=== PATIENT | male | born 1965 | race Caucasian/White ===

== ENCOUNTER 2020-02-13 16:03 | Outpatient (REF) | payer OTHER, BC, SELFPAY ==
--- NOTE | 2020-02-13 16:16 | XR_ITS ---
EXAMINATION: XR HAND, RIGHT CLINICAL INFORMATION: Laceration middle digit. Concern for foreign body. COMPARISON: None TECHNIQUE: PA, lateral, and oblique views of the right hand. FINDINGS: There is no radiopaque foreign body. There is no air in the soft tissue. The bone and joints are normal. IMPRESSION: Normal right hand. No radiopaque foreign body.
== END 2020-02-13 16:04 | disposition home or self-care (01) ==
LOC: HO.HMGCX 16:03
PROVIDERS: PCP Internal Medicine; Visit Provider Nurse Practitioner Family
DX: S61.212A Laceration without foreign body of right middle finger without damage to nail, initial encounter (principal); X58.XXXA Exposure to other specified factors, initial encounter; Y93.9 Activity, unspecified; Y92.9 Unspecified place or not applicable; Y99.8 Other external cause status
CPT/HCPCS: 73130

== ENCOUNTER 2020-05-30 14:04 | Outpatient (REF) | payer BC, SELFPAY | END 2020-05-30 14:05 | disposition home or self-care (01) | LOC: HO.HMGCLDS 14:04 | PROVIDERS: PCP Internal Medicine; Visit Provider Internal Medicine | DX: Z13.89 Encounter for screening for other disorder (principal) ==

== ENCOUNTER 2020-05-30 14:27 | Outpatient (REF) | payer BC, SELFPAY ==
[2020-05-30 15:33] LABS: MANUAL DIFF FLAG NO
[2020-05-30 15:35] LABS: Basophils Percent Auto 0.5 % (0-2); Eosinophils Absolute Auto 0.2 X10*3/uL (0.0-0.4); Eosinophils Percent Auto 2.7 % (0-4); Hematocrit 44.9 % (42-52); Hemoglobin 14.9 g/dl (14.0-18.0); Imm Gran Abs Auto 0.01 X10*3/uL (0.00-0.03); Imm Gran Pct Auto 0.1 % (0.0-0.4); Lymphocytes Absolute Auto 1.8 X10*3/uL (1.2-4.9); Mean Corpuscular HGB Conc 33.2 g/dl (31.0-36.0); Mean Corpuscular Volume 90.3 fL (80-98); Mean Platelet Volume 10.8 fL (9.4-12.4); Monocytes Absolute Auto 0.6 X10*3/uL (0.1-1.2); Monocytes Percent Auto 8.2 % (2-11); Neutrophils Percent Auto 65.5 % (45-73); Platelet Count 254 X10*3/uL (160-400); Red Blood Count 4.97 X10*6/uL (4.60-5.80); Red Cell Distribution Width 12.8 % (11.0-16.0); White Blood Count 7.7 X10*3/uL (4.8-10.8)
[2020-05-30 15:36] LABS: Lactic Acid 1.6 mmol/L (0.5-2.0)
[2020-05-30 15:39] LABS: Glucose Urine UA NEG (NEG); Leukocyte Esterase Urine NEG (NEG); Nitrite Urine NEG (NEG); Specific Gravity - Urine >= 1.030 (1.005-1.025); Urine Blood NEG (NEG); Urine Ketones NEG (NEG); Urine Protein NEG (NEG-TRACE)
[2020-05-30 15:43] LABS: Appearance Urine HAZY; Color Urine YELLOW
[2020-05-30 16:06] LABS: Alanine Aminotransferase 24 U/L (0-40); Albumin Level 4.6 g/dL (3.5-5.0); Alkaline Phosphatase 76 U/L (39-117); Anion Gap 12 (12-20); Aspartate Amino Transferase 24 U/L (5-37); Bilirubin Total 0.5 mg/dL (0.0-1.0); Blood Urea Nitrogen 18 mg/dL (9-16); Calcium 9.4 mg/dL (8.4-10.2); Carbon Dioxide 29 mmol/L (22-29); Chloride 106 mmol/L (96-108); Estimated Glomerular Filt Rate > 60; Glucose Random 74 mg/dL (60-115); Lipase 19 U/L (8-78); Potassium 5.1 mmol/l (3.3-5.1); Sodium 142 mmol/L (135-145); Total Protein 7.4 g/dL (6.5-8.0)
[2020-05-30 16:28] LABS: Prostate Specific Antigen 1.09 ng/mL (<0.05-4.0)
== END 2020-05-30 14:28 | disposition home or self-care (01) ==
LOC: HO.LAB 14:27
PROVIDERS: PCP Internal Medicine; Visit Provider Internal Medicine
DX: R10.31 Right lower quadrant pain (principal); R39.198 Other difficulties with micturition
CPT/HCPCS: 36415; 80053; 81003; 83605; 83690; 84153; 85025; 86140

== ENCOUNTER 2020-06-07 07:56 | Outpatient (REF) | payer BC, SELFPAY ==
--- NOTE | ~2020-06-07 | CT_ITS ---
EXAMINATION: CT ABDOMEN AND PELVIS WITH CONTRAST CLINICAL INFORMATION: Right lower quadrant pain. COMPARISON: Renal ultrasound 08/04/[address] abdomen 07/02/2015 TECHNIQUE: Multidetector volumetric images were obtained from the superior aspect of the liver through the pubic symphysis following administration 85 mL of Omnipaque 350 intravenous contrast. Sagittal and coronal reformatted images were obtained on the technologist's workstation. Oral contrast: No This CT examination was performed using dose optimization techniques as appropriate, variously including the following: *Automated exposure control *Adjustment of mA and/or kV according to patient size (this includes techniques or standardized protocols for targeted exams where dose is matched to indication/reason for exam; i.e. extremities or head) *Use of iterative reconstruction technique DLP: 568 mGy-cm FINDINGS: LUNG BASES: The lung bases are clear. The heart size is normal. LIVER, GALLBLADDER, AND BILIARY TREE: The liver is normal in size, shape, and attenuation. No focal hepatic lesion or biliary ductal dilatation is present. The gallbladder is unremarkable with no evidence of radiopaque gallstones, gallbladder wall thickening, or obvious pericholecystic inflammatory changes. PANCREAS: Unremarkable. SPLEEN: Unremarkable. ADRENAL GLANDS: Unremarkable. KIDNEYS AND URETERS: The kidneys are normal in size, shape, and attenuation. No hydronephrosis, hydroureter, or calculi seen. No perinephric stranding. There is a moderate size mid pole cyst measuring 5.2 x 3.4 cm. There is 7 mm cyst mid to lower pole right kidney. BLADDER: Unremarkable. GASTROINTESTINAL TRACT: Scattered stool, diverticuli and gas seen throughout the colon without distention or diverticulitis. Oral contrast opacified small bowel loops are normal caliber. Appendix is not visualized with certainty. ABDOMINAL WALL: Small umbilical hernia containing fat is noted.. LYMPH NODES: Normal. VASCULAR: Unremarkable. PELVIC VISCERA: The prostate gland is mildly enlarged. No free fluid or free air seen. OSSEOUS STRUCTURES: Mild degenerative disc changes with ventral spondylosis L2-L3 and L1 S2 disc levels is noted. No lytic or sclerotic process seen. CT/CT abdomen pelvis w con IMPRESSION: Mild constipation with scattered colonic diverticulosis but no diverticulitis. Bilateral renal cysts.
[2020-06-07] MEDS: iohexoL 350 MG/ML 100 ML INFUS..BTL 85 ML IV (11:12)
[2020-06-07] MEDS: Barium Sulfate Oral (Vanilla) 450 ML ORAL.SUSP 900 ML PO (11:12)
== END 2020-06-07 07:57 | disposition home or self-care (01) ==
LOC: HO.CT 07:56
PROVIDERS: PCP Internal Medicine; Visit Provider Internal Medicine
DX: R10.31 Right lower quadrant pain (principal)
CPT/HCPCS: 74177; Q9967

== ENCOUNTER → 2020-07-10 11:27 | Outpatient (BNVA) | payer BC, SELFPAY | PROVIDERS: PCP Internal Medicine; Visit Provider Surgery ==

== ENCOUNTER 2020-07-24 08:57 | Outpatient (REF) | payer BC, SELFPAY ==
--- NOTE | ~2020-07-24 | US_ITS ---
EXAMINATION: US ABDOMEN COMPLETE CLINICAL INFORMATION: Unspecified abdominal pain. COMPARISON: CT abdomen and pelvis 06/07/2020. Renal ultrasound 08/04/2016. TECHNIQUE: Real-time imaging of the abdominal viscera. FINDINGS: PANCREAS: Not well visualized ABDOMINAL AORTA: The mid and distal segments are normal in caliber. INFERIOR VENA CAVA: Visualized portions are normal. LIVER: The liver is normal in size. The liver contour is normal. Liver echotexture may be slightly increased. No focal hepatic lesion. There is no intrahepatic biliary duct dilatation seen. GALLBLADDER: Normal. The gallbladder is physiologically distended without evidence of stones, sludge, polyps, wall thickening or pericholecystic fluid. COMMON BILE DUCT: Normal in caliber measuring 0.2 cm in diameter. RIGHT KIDNEY: There is an 8 x 8 x 10 mm cyst in the lower pole. No hydronephrosis or renal calculi. The kidney measures 12.6 cm in maximum dimension. LEFT KIDNEY: There is a 4.4 x 3.2 x 4 cm cyst in the midpole and a 1.5 x 1.7 x 2.3 cm cyst in the midpole. No hydronephrosis or renal calculi. The kidney measures 12.7 cm in maximum dimension. SPLEEN: Normal. The spleen measures 10.6 cm in maximum dimension. FREE FLUID: None. US/US abdomen complete IMPRESSION: Limited visualization of the pancreas and upper abdominal aorta. Slightly echogenic liver questionable for fatty infiltration. Bilateral renal cysts.
== END 2020-07-24 08:58 | disposition home or self-care (01) ==
LOC: HO.HMGCX 08:57
PROVIDERS: Visit Provider Surgery
DX: R10.9 Unspecified abdominal pain (principal)
CPT/HCPCS: 76700

== ENCOUNTER 2023-11-23 11:47 | Outpatient (AMB) | payer BC, SELFPAY ==
[2023-11-23 11:51] VITALS: BP 150/80; PULSE 67; TEMP 36.6; O2SAT 97; BMI 29.8
--- NOTE | 2023-11-23 11:51 | AM.OFFWIN_ITS ---
Intake Vital Signs 11/23/23 11:51 Height 6 ft Weight 220 lb BMI 29.8 BP 150/80 H Blood Pressure Location Rt brachial Position Sitting Pulse 67 Pulse Source Pulse Oximeter Temp 97.9 F Temp Source Temporal Artery Scan Pulse Oximetry (%) 97 Oxygen Delivery Method Room Air Intake Visit Reasons: EP Rash arm/stomach Intake Note: pt is here for rash on arm and stomach Patient Tobacco Use Status: Never used Tobacco Allergies No Known Allergies Allergy (Verified 11/23/23 11:54) Do you need a note to return to daycare/school/sports/work: No HPI HPI Comments History of Present Illness Details Patient is a 58-year-old male complaining of an itchy rash on his right forearm that started 4 days ago. He said he now also has it on his right lower abdomen. He states it is itchy, he denies any fevers. He states at work last he might have come in contact with poison chang when he was moving something. [facility] Medical History (Updated 11/23/23 @ 12:05 by Socorro Ventura PA-C) Neuropathy Right sided abdominal pain Surgical History History of surgical amputation of finger History of left knee surgery History of vasectomy Family History Mother Breast cancer Sister Breast cancer Social History Alcohol intake: never Patient Tobacco Use Status: Never used Tobacco Review of Systems Const All systems reviewed & are unremarkable except as noted in HPI and below Physical Exam Vital Signs: Last Vital Signs Temp 97.9 F 11/23/23 11:51 Pulse 67 11/23/23 11:51 BP 150/80 H 11/23/23 11:51 Pulse Ox 97 11/23/23 11:51 Oxygen Delivery Method Room Air 11/23/23 11:51 BMI result Body Mass Index 29.8 Const General: cooperative, healthy appearing, comfortable and no acute distress Orientation/consciousness: patient oriented x3 Limitations: no limitations HEENT Head: Yes normal to inspection Eyes General: appearance normal, both eyes and all related structures Resp Effort & Inspection: normal respiratory effort and able to speak in complete sentences Skin Other: A streaky, linear maculopapular rash with crusted lesions on right forearm, much larger patch on the right lower abdomen along the belt line, extending into the groin Neuro General: patient oriented x3 Assessment & Plan Assessment & Plan (1) Allergic dermatitis due to poison chang: Code(s): L23.7 - Allergic contact dermatitis due to plants, except food Plan: Discussed risks and benefits of prednisone use with patient. As rash is approaching the groin area, we will not use cream and will use an oral steroid. Plan see above Medications: New prednisone On days 1 through 5 take 2 tablets with breakfast; On days 6 through 10 take 1 tablet with breakfast; On days 11 through 15 take 1/2 tablet with breakfast 20 mg PO DAILY 18 tabs 0RF Coding Level of Care Code New Pt Level 3 (13469) Diagnoses Allergic dermatitis due to poison chang L23.7
== END 2023-11-23 12:10 | disposition home or self-care (01) ==
PROVIDERS: PCP Internal Medicine; Visit Provider Physician Assistant
DX: L23.7 Allergic contact dermatitis due to plants, except food (principal)
CPT/HCPCS: 99203

== ENCOUNTER 2023-12-03 13:20 | Outpatient (AMB) | payer BC, SELFPAY ==
--- NOTE | 2023-12-03 13:20 | MHC.OFFWIV ---
Intake Vital Signs 12/03/23 13:24 Height 6 ft Weight 220 lb BMI 29.8 BP 166/104 H Blood Pressure Location Lt brachial Position Sitting Pulse 98 Pulse Source Pulse Oximeter Temp 99.6 F Temp Source Oral Pulse Oximetry (%) 98 Oxygen Delivery Method Room Air Intake Visit Reasons: frequent urination, painful Intake Note: pt c/o frequent, painful urination. Started Patient Tobacco Use Status: Never used Tobacco Allergies No Known Allergies Allergy (Verified 12/03/23 13:20) Do you need a note to return to daycare/school/sports/work: No HPI HPI Comments History of Present Illness Details 58 y/o male patient who presents to the walk in clinic with c/o urinary symptoms x 4 days. Denies nausea or vomiting. Reports fevers and body chills. [facility] Medical History (Updated 11/23/23 @ 12:05 by Socorro Ventura PA-C) Neuropathy Right sided abdominal pain Surgical History History of surgical amputation of finger History of left knee surgery History of vasectomy Family History Mother Breast cancer Sister Breast cancer Social History Alcohol intake: never Patient Tobacco Use Status: Never used Tobacco Review of Systems Const All systems reviewed & are unremarkable except as noted in HPI and below Physical Exam Vital Signs: Last Vital Signs Temp 99.6 F 12/03/23 13:24 Pulse 98 12/03/23 13:24 BP 166/104 H 12/03/23 13:24 Pulse Ox 98 12/03/23 13:24 Oxygen Delivery Method Room Air 12/03/23 13:24 BMI result Body Mass Index 29.8 Const General: comfortable and no acute distress Nutritional Appearance: overweight Orientation/consciousness: patient oriented x3 Resp Effort & Inspection: normal respiratory effort Cardio Heart sounds: S1 normal heart sound present and S2 normal heart sound present Other: Bladder examination deferred General: Yes no CVA tenderness Back/Spine/Pelvis Back: no CVA tenderness Skin General skin exam: no rashes or lesions noted Neuro General: patient oriented x3, gait normal and moves all extremities Psych Speech and movement: Normal speech and movement present Results AMB Urinalysis, Automated UA Leukoctes 125 Wilian/uL Last Edit by Osvaldo Ewing CMA on 12/03/23 13:40 UA Nitrite Negative Last Edit by Osvaldo Ewing CMA on 12/03/23 13:40 UA Urobilinogen 1 mg/dL Last Edit by Osvaldo Ewing, CIRA on 12/03/23 13:40 UA Protein 30 mg/dL Last Edit by Osvaldo Ewing, CIRA on 12/03/23 13:40 UA pH 6.0 Last Edit by Osvaldo Ewing, CIRA on 12/03/23 13:40 UA Blood 200 Tomasz/uL Last Edit by Osvaldo Ewing, CIRA on 12/03/23 13:40 UA Specific [place] 1.020 Last Edit by Osvaldo Ewing CMA on 12/03/23 13:40 UA Ketone Negative Last Edit by Osvaldo Ewing CMA on 12/03/23 13:40 UA Bilirubin 0 mg/dL Last Edit by Osvaldo Ewing, CIRA on 12/03/23 13:40 UA Glucose 0 mg/dL Last Edit by Osvaldo Ewing CMA on 12/03/23 13:40 Results Reviewed Results Reviewed: Laboratory Last Values Urine pH (Auto) 6.0 12/03/23 13:39 Specific [place] (Auto) 1.020 12/03/23 13:39 Urine Protein (Auto) 30 mg/dL 12/03/23 13:39 Glucose (UA)(Auto) 0 mg/dL 12/03/23 13:39 Urine Ketones (Auto) Negative 12/03/23 13:39 Urine Blood (Auto) 200 Tomasz/uL 12/03/23 13:39 Urine Nitrite (Auto) Negative 12/03/23 13:39 Urine Bilirubin (Auto) 0 mg/dL 12/03/23 13:39 Urine Urobilinogen (Auto) 1 mg/dL 12/03/23 13:39 Leukocyte Esterase (Auto) 125 Wilian/uL 12/03/23 13:39 Assessment & Plan Assessment & Plan (1) Cystitis: Code(s): N30.90 - Cystitis, unspecified without hematuria Plan: Sent Urine culture Ordered Bactrim Hydrate well with plenty of fluids and water. Orders: Orders AMB Urinalysis Automated Today Z13.9 - Encounter for screening, unspecified UA CC w/rflx Micro + Cult Today N30.90 - Cystitis, unspecified without hematuria Medications: New sulfamethoxazole-trimethoprim 800-160 mg (Bactrim DS) 1 tab PO Q12H 14 tabs 0RF 7 days N30.90 - Cystitis, unspecified without hematuria Coding Level of Care Code Est Pt Level 3 (59925) Diagnoses Cystitis N30.90 Time Spent (min) 15
[2023-12-03 13:24] VITALS: BP 166/104; PULSE 98; TEMP 37.6; O2SAT 98; BMI 29.8
== END 2023-12-03 14:01 | disposition home or self-care (01) ==
PROVIDERS: PCP Internal Medicine; Visit Provider Nurse Practitioner Family
DX: N30.90 Cystitis, unspecified without hematuria (principal)
CPT/HCPCS: 81003; 99213

== ENCOUNTER 2023-12-03 13:56 | Outpatient (REF) | payer BC, SELFPAY ==
[2023-12-03 18:45] LABS: Appearance Urine Turbid; Color Urine Dark Yellow; Glucose Urine UA Negative (Negative); Leukocyte Esterase Urine Large (3+) (Negative); Nitrite Urine Positive (Negative); PH 6.5 (5.0-9.0); Specific Gravity - Urine 1.025 (1.005-1.025); UMIC TRIGGER UACC YES; Urine Blood Moderate (2+) (Negative); Urine Ketones Trace mg/dL (Negative); Urine Protein 100 (2+) mg/dL (Neg-Trace)
[2023-12-03 18:50] LABS: Bacteria Urine 4+ (None Seen); RBC Urine >20 /HPF (0-2); Squamous Epithelial Cell Urine 0-2 /HPF (0-2); UACC Culture Trigger YES; WBC Urine >50 /HPF (0-5)
== END 2023-12-03 13:57 | disposition home or self-care (01) ==
LOC: HO.LAB 13:56
PROVIDERS: Visit Provider Nurse Practitioner Family
DX: N30.90 Cystitis, unspecified without hematuria (principal); Z13.9 Encounter for screening, unspecified
CPT/HCPCS: 81001; 87086; 87088; 87186

== ENCOUNTER 2023-12-08 07:08 | Outpatient (REF) | payer BC, SELFPAY ==
[2023-12-08 10:14] LABS: MANUAL DIFF FLAG NO
[2023-12-08 10:23] LABS: Basophils Absolute Auto 0.1 X10*3/uL (0.0-0.2); Basophils Percent Auto 0.9 % (0-2); Eosinophils Absolute Auto 0.2 X10*3/uL (0.0-0.4); Eosinophils Percent Auto 2.4 % (0-4); Hemoglobin 14.4 g/dl (14.0-18.0); Imm Gran Abs Auto 0.09 X10*3/uL (0.00-0.03); Imm Gran Pct Auto 1.4 % (0.0-0.4); Lymphocytes Absolute Auto 1.9 X10*3/uL (1.2-4.9); Lymphocytes Percent Auto 29.6 % (20-40); Mean Corpuscular HGB Conc 32.7 g/dl (31.0-36.0); Mean Corpuscular Hemoglobin 29.5 pg (27.0-33.0); Mean Corpuscular Volume 90.2 fL (80.0-98.0); Mean Platelet Volume 10.5 fL (9.4-12.4); Monocytes Absolute Auto 0.6 X10*3/uL (0.1-1.2); Monocytes Percent Auto 8.4 % (2-11); Neutrophils Absolute Auto 3.8 x10*3/uL (2.0-8.3); Neutrophils Percent Auto 57.3 % (45-73); Platelet Count 296 X10*3/uL (160-400); Red Blood Count 4.88 X10*6/uL (4.60-5.80); Red Cell Distribution Width 13.6 % (11.0-16.0); White Blood Count 6.6 X10*3/uL (4.8-10.8)
[2023-12-08 10:24] LABS: Appearance Urine Clear; Color Urine Yellow; Glucose Urine UA Negative (Negative); Leukocyte Esterase Urine Negative (Negative); Nitrite Urine Negative (Negative); PH 5.5 (5.0-9.0); Urine Blood Negative (Negative); Urine Ketones Negative (Negative); Urine Protein Negative (Neg-Trace)
[2023-12-08 10:28] LABS: Bacteria Urine None Seen (None Seen); Hyaline Casts Urine 0-2 /LPF (0-2); RBC Urine 0-2 /HPF (0-2); Squamous Epithelial Cell Urine 0-2 /HPF (0-2)
[2023-12-08 10:56] LABS: Alanine Aminotransferase 33 U/L (0-40); Albumin Level 3.8 g/dL (3.5-5.0); Alkaline Phosphatase 78 U/L (39-117); Anion Gap 11 (12-20); Aspartate Amino Transferase 22 U/L (5-37); Bilirubin Total 0.4 mg/dL (0.0-1.0); Blood Urea Nitrogen 21 mg/dL (9-16); Calcium 9.4 mg/dL (8.4-10.2); Carbon Dioxide 25 mmol/L (22-29); Chloride 108 mmol/L (96-108); Cholesterol 176 mg/dL (<200); Estimated Glomerular Filt Rate > 60; Glucose Fasting 99 mg/dL (60-99); HDL Cholesterol 26 mg/dL (>40); LDL Cholesterol Calculated 115 mg/dL (<100); Potassium 4.5 mmol/L (3.3-5.1); Sodium 139 mmol/L (135-145); Thyroid Stimulating Hormone 2.41 uIU/mL (0.32-4.0); Total Protein 6.9 g/dL (6.5-8.0); Triglycerides 179 mg/dL (<150); Vitamin D 25-OH Total 79.7 ng/mL (>30)
[2023-12-08 11:18] LABS: PSA,Total (Free>4and<10) 17.57 ng/mL (0.00-4.00)
[2023-12-08 11:28] LABS: Folate 5.1 ng/mL (> or = 4.0); Vitamin B12 630 pg/mL (200-900)
== END 2023-12-08 07:09 | disposition home or self-care (01) ==
LOC: HO.HMGCLDS 07:08
PROVIDERS: PCP Internal Medicine; Visit Provider Internal Medicine
DX: E55.9 Vitamin D deficiency, unspecified (principal); E58 Dietary calcium deficiency; N20.0 Calculus of kidney; Z12.5 Encounter for screening for malignant neoplasm of prostate
CPT/HCPCS: 36415; 80053; 80061; 81001; 82306; 82607; 82746; 84153; 84443; 85025

== ENCOUNTER 2023-12-13 14:25 | Outpatient (REF) | payer BC, SELFPAY ==
--- NOTE | ~2023-12-13 | US_ITS ---
EXAMINATION: US RETROPERITONEAL COMPLETE (RENAL) CLINICAL INFORMATION: Renal calculus. COMPARISON: Renal ultrasound July 21, 2020 TECHNIQUE: Real-time imaging of the kidneys and bladder. FINDINGS: RIGHT KIDNEY: 13.2 x 5.6 x 5.3 cm (SAG x AP x TRV). The kidney is normal in size, contour, and echogenicity. Renal cortical thickness is normal. No calculi or focal parenchymal lesions. No hydronephrosis. LEFT KIDNEY: 12.4 x 4.6 x 5.2 cm (SAG x AP x TRV). The kidney is normal in size, contour, and echogenicity. Renal cortical thickness is normal. There is a simple appearing 5.5 cm mid pole cyst. No renal calculi or hydronephrosis. US/US renal BI IMPRESSION: 1. No renal calculi or hydronephrosis of either kidney. 2. 5.5 cm simple appearing left renal cyst. Electronically signed by: Rahul Chun MD 12/31/2023 07:05 AM EDT
== END 2023-12-13 14:26 | disposition home or self-care (01) ==
LOC: HO.US 14:25
PROVIDERS: PCP Internal Medicine; Visit Provider Internal Medicine
DX: N20.0 Calculus of kidney (principal)
CPT/HCPCS: 76775

== ENCOUNTER 2024-11-01 07:59 | Outpatient (AMB) | payer BC, SELFPAY ==
[2024-11-01 08:03] VITALS: BP 124/80; PULSE 66; TEMP 36.6; O2SAT 96; BMI 32.1
--- NOTE | 2024-11-01 08:03 | MHC.OFFWIV ---
Intake Vital Signs 11/01/24 08:03 Height 6 ft Weight 237 lb BMI 32.1 BP 124/80 Blood Pressure Location Rt brachial Position Sitting Pulse 66 Pulse Source Pulse Oximeter Temp 98 F Temp Source Oral Pulse Oximetry (%) 96 Oxygen Delivery Method Room Air Intake Visit Reasons: EP Poison Jolie Intake Note: presents with poison jolie rash on arms x2 days Patient Tobacco Use Status: Never used Tobacco Allergies No Known Allergies Allergy (Verified 11/01/24 08:06) Do you need a note to return to daycare/school/sports/work: No HPI HPI Comments History of Present Illness Details Patient is a 59-year-old male complaining of worsening poison jolie on his arms and legs. He states he was wearing an area for work and poison jolie developed on his left forearm spreading to his right forearm and 1 of his legs and it is starting on his chest now. He states it is very itchy and he has been trying to use hydrocortisone cream without much relief. He is using tech new wash 4-5 times per day but it still seems to be spreading. He is worried about having this rash over the holiday weekend. [facility] Medical History (Updated 11/01/24 @ 08:24 by Socorro Ventura PA-C) Neuropathy Right sided abdominal pain Surgical History History of surgical amputation of finger History of left knee surgery History of vasectomy Family History Mother Breast cancer Sister Breast cancer Social History Alcohol intake: never Patient Tobacco Use Status: Never used Tobacco Review of Systems Const All systems reviewed & are unremarkable except as noted in HPI and below Physical Exam Vital Signs: Last Vital Signs Temp 98 F 11/01/24 08:03 Pulse 66 11/01/24 08:03 BP 124/80 11/01/24 08:03 Pulse Ox 96 11/01/24 08:03 Oxygen Delivery Method Room Air 11/01/24 08:03 BMI result Body Mass Index 32.1 Const General: cooperative, healthy appearing, comfortable and no acute distress Orientation/consciousness: patient oriented x3 Limitations: no limitations HEENT Head: Yes normal to inspection Eyes General: appearance normal, both eyes and all related structures Resp Effort & Inspection: normal respiratory effort and able to speak in complete sentences Skin Other: A streaky, linear maculopapular rash with crusted lesions on bilateral upper extremities and left lower leg Neuro General: patient oriented x3 Assessment & Plan Assessment & Plan (1) Contact dermatitis: Code(s): L25.9 - Unspecified contact dermatitis, unspecified cause Qualifiers: Contact dermatitis type: allergic Contact dermatitis trigger: non-food plants Qualified Code(s): L23.7 - Allergic contact dermatitis due to plants, except food Plan: After a discussion we decided to prescribe both triamcinolone cream and prednisone. Because it is a holiday weekend, he is going to start with the cream and if that works he will not pickling operator the prednisone but if the cream does not work well, he will then pickling operator the prednisone and start taking that. If he has worsening of symptoms, he should return to the clinic. Medications: New prednisone take 4 tablets on days 1-2, take 3 tablets on days 3-4, take 2 tablets on days 5-6, take 1 tablet on days 7-8. 10 mg PO DIRECTED 20 tabs 0RF triamcinolone acetonide 0.1% 1 appl topical BID 80 grams 0RF Coding Level of Care Code Est Pt Level 3 (94445) Diagnoses Allergic contact dermatitis due to plants, except food L23.7 Contact dermatitis type: allergic Contact dermatitis trigger: non-food plants
== END 2024-11-01 08:32 | disposition home or self-care (01) ==
PROVIDERS: PCP Internal Medicine; Visit Provider Physician Assistant
DX: L23.7 Allergic contact dermatitis due to plants, except food (principal)

== ENCOUNTER 2024-11-27 13:52 | Outpatient (AMB) | payer BC, SELFPAY ==
[2024-11-27 14:44] VITALS: BP 110/72; PULSE 96; TEMP 36.7; O2SAT 96; BMI 31.9
--- NOTE | 2024-11-27 14:44 | MHC.OFFWIV ---
Intake Vital Signs 11/27/24 14:44 Height 6 ft Weight 235 lb BMI 31.9 BP 110/72 Blood Pressure Location Rt brachial Position Sitting Pulse 96 Pulse Source Pulse Oximeter Temp 98.0 F Temp Source Oral Pulse Oximetry (%) 96 Oxygen Delivery Method Room Air Intake Visit Reasons: EP Rt leg injury, fluid build up Intake Note: presents with right thigh discomfort with a swollen mass and bruising to right ribs after a fall a week ago Patient Tobacco Use Status: Never used Tobacco Allergies No Known Allergies Allergy (Verified 11/27/24 14:47) Do you need a note to return to daycare/school/sports/work: No HPI HPI Comments History of Present Illness Details 59 y/o Male patient who presents to the walk in clinic with c/o Large Bruise and Lump on right Thigh after a Fall last week. Reports Tenderness to the area, skin intact and Red. [facility] Medical History (Updated 11/27/24 @ 15:28 by Nava Chapman NP) Hematoma and contusion Neuropathy Right sided abdominal pain Surgical History History of surgical amputation of finger History of left knee surgery History of vasectomy Family History Mother Breast cancer Sister Breast cancer Social History Alcohol intake: never Patient Tobacco Use Status: Never used Tobacco Review of Systems Const All systems reviewed & are unremarkable except as noted in HPI and below Physical Exam Vital Signs: Last Vital Signs Temp 98.0 F 11/27/24 14:44 Pulse 96 11/27/24 14:44 BP 110/72 11/27/24 14:44 Pulse Ox 96 11/27/24 14:44 Oxygen Delivery Method Room Air 11/27/24 14:44 BMI result Body Mass Index 31.9 Const General: no acute distress Orientation/consciousness: patient oriented x3 Skin Full body images:  1. A large fluid filled Hematoma, soft , TTP with Bruise Neuro General: patient oriented x3, gait normal and moves all extremities Psych Speech and movement: Normal speech and movement present Assessment & Plan Assessment & Plan (1) Hematoma and contusion: Code(s): T14.8XXA - Other injury of unspecified body region, initial encounter Plan: Large Hematoma right thigh. Acetaminophen for pain relief Ice/Hot to the area Elevate the joint/Limb Coding Level of Care Code Est Pt Level 4 (49822) Diagnoses Hematoma and contusion T14.8XXA Time Spent (min) 20
== END 2024-11-27 15:44 | disposition home or self-care (01) ==
PROVIDERS: PCP Internal Medicine; Visit Provider Nurse Practitioner Family
DX: T14.8XXA Other injury of unspecified body region, initial encounter (principal)